=== PATIENT | male | born 1955 | race Caucasian/White ===

== ENCOUNTER 2017-04-20 14:19 | Inpatient (IN) ==
--- NOTE | 2017-04-20 14:36 | Emergency Department Note ---
Disposition Clinical Impression: Elevation of cardiac enzymes Chest pain Qualifiers: Chest pain type: unspecified Qualified Code(s): R07.9 - Chest pain, unspecified Disposition: Admitted As Inpatient Condition: Fair Forms: ED Satisfaction Letter Time of Disposition: 15:30 Chest Pain HPI - General Chief Complaint: ED Chest Pain Stated Complaint: Chest Pain Time Seen by Provider: 04/20/17 14:22 Source: patient, EMS Mode of arrival: EMS Limitations: no limitations Vital Signs Reviewed: Yes Nursing Notes Reviewed: Yes - History of Present Illness HPI Narrative: 61-year-old [place] patient who apparently was admitted to the [place] for the evaluation of chest discomfort. He shouldn't had a repeat troponin which came back at 0.082 (normal less than 0.045) Pt complaint: chest pain Onset (ago): day(s) Duration: intermittent Onset: during rest Pain Location: substernal, left chest Severity: moderate Quality: tightness, aching, heaviness Pain Radiation: none Improves with: nitroglycerin Worsens with: nothing Context: recent illness Associated symptoms: Reports: nausea Treatments prior to arrival chest pain: none All systems ED: reviewed and negative except as stated. Constitutional: Denies: fever, chills, weakness, weight change Eyes: Denies: eye pain, eye discharge, vision change ENT ED: Denies: ear pain, throat pain, dental pain, hearing loss, epistaxis, congestion, dysphagia Cardiovascular: Reports: chest pain. Denies: palpitations, dyspnea on exertion , edema, syncope Respiratory: Denies: cough, dyspnea, wheezes, hemoptysis, stridor Gastrointestinal: Denies: abdominal pain, nausea, vomiting, diarrhea, constipation, hematemesis, melena, hematochezia Genitourinary: Denies: urgency, dysuria, frequency, hematuria Musculoskeletal: Denies: back pain, neck pain, arthralgia, myalgia Integumentary: Denies: rash, abrasion, lesions Neurological: Denies: headache, weakness, numbness, paresthesias, confusion, abnormal gait, vertigo Psychiatric: Denies: anxiety, depression, suicidal thoughts, homicidal thoughts , auditory hallucinations, visual hallucinations Endocrine: Denies: fatigue Hematological/Lymphatic: Denies: easy bleeding, easy bruising Allergic/Immunologic: Denies: facial swelling, urticaria Physical Exam - General Limitations: no limitations General appearance: alert, in no apparent distress - Head Head exam: atraumatic, normocephalic, normal inspection - Eye Eye exam: Present: normal appearance, PERRL, EOMI - ENT ENT exam: normal exam, normal oropharynx, mucous membranes moist - Neck Neck exam: Present: normal inspection, full ROM, trachea midline - Chest Chest inspection: Present: normal inspection, symmetric chest wall rise - Respiratory Respiratory exam: Present: normal lung sounds bilaterally - Cardiovascular Cardiovascular exam: Present: regular rate, normal rhythm, normal heart sounds - Abdominal Exam Abdominal exam: Present: soft, Non-Tender. Absent: tenderness, distention, guarding, rebound, rigidity - Extremities Exam Extremities exam: Present: normal inspection, full ROM. Absent: tenderness, pedal edema - Expanded Lower Extremity Exam Neurovascular/Tendon exam: Absent: motor deficit, sensory deficit, tendon deficit Gait: observed and normal - Back Exam Back exam: Present: normal inspection, full ROM. Absent: tenderness - Neurological Exam Neurological exam: Present: alert, oriented X3 - Psychiatric Psychiatric exam: Present: normal affect, normal mood - Skin Skin exam: Present: warm, dry, intact, normal color Course - Reevaluation(s) Reevaluation #1: 61-year-old [place] patient was admitted to the [place] developed some chest pain and felt his troponin to be slightly elevated. They were concerned about EKG changes I did go through the leave the EKGs from the [place] and I don't see any obvious change. We did obtain an EKG here that showed no acute changes. Initial troponin here was 0.06. Time: 15:27 - Consultations Consultation #1: Discussed with , admit. Time: 15:27 Vital Signs Temperature 98 F 04/20/17 14:29 Pulse Rate 57 04/20/17 14:29 Respiratory Rate 18 04/20/17 14:29 Blood Pressure 115/67 04/20/17 14:29 O2 Sat by Pulse Oximetry 98 04/20/17 14:29 Temperature 98 F 04/20/17 14:39 Pulse Rate 57 04/20/17 14:39 Respiratory Rate 16 04/20/17 14:39 Blood Pressure 116/72 04/20/17 14:39 O2 Sat by Pulse Oximetry 96 04/20/17 14:39 Oxygen Delivery Oxygen Delivery Room Air Chest Pain - Lab Data Result diagrams: 04/20/17 14:42 04/20/17 14:42 Lab Results 04/20/17 04/20/17 04/20/17 Range/Units 14:42 14:42 14:42 WBC 8.8 (4.3-11.1) K/mcL RBC 4.51 (4.19-5.50) M/mcL Hgb 14.0 (12.9-16.9) g/dL Hct 41.3 (37.5-50.1) % MCV 91.6 (83.0-100.0) fL MCH 31.0 (28.0-33.3) pg MCHC 33.9 (31.6-35.5) g/dL RDW 13.2 (11.5-14.5) % Plt Count 177 (140-400) K/mcL MPV 11.3 (9.4-12.4) fL Immature Gran % 0.7 (0-4) % Seg Neutrophils % 52.5 % Lymphocytes % 29.2 % Monocytes % 12.3 % Eosinophils % 4.7 % Basophils % 0.6 % Neutrophils # 4.6 (1.6-8.9) K/mcL Lymphocytes # 2.6 (0.6-4.6) K/mcL Monocytes # 1.1 (0.0-1.3) K/mcL Eosinophils # 0.4 (0.0-0.6) K/mcL Basophils # 0.1 (0.0-0.2) K/mcL PT 11.3 (9.4-12.1) Seconds INR 1.1 APTT 27.2 (26.0-36.0) Seconds Sodium 133 L (136-145) mEq/L Potassium 4.2 (3.5-4.5) mEq/L Chloride 101 (98-109) mEq/L Carbon Dioxide 23 (19-29) mEq/L BUN 21 (8-26) mg/dL Creatinine 0.92 (0.72-1.25) mg/dL Est GFR ( Amer) > 60 (> 60) Est GFR (Non-Af Amer) > 60 (> 60) BUN/Creatinine Ratio 23 (6-26) Glucose 93 (70-99) mg/dL Calculated Osmolality 279 L (280-300) Calcium 8.8 (8.6-10.8) mg/dL Troponin I (0-0.03) ng/mL 11/13/17 Range/Units 14:42 WBC (4.3-11.1) K/mcL RBC (4.19-5.50) M/mcL Hgb (12.9-16.9) g/dL Hct (37.5-50.1) % MCV (83.0-100.0) fL MCH (28.0-33.3) pg MCHC (31.6-35.5) g/dL RDW (11.5-14.5) % Plt Count (140-400) K/mcL MPV (9.4-12.4) fL Immature Gran % (0-4) % Seg Neutrophils % % Lymphocytes % % Monocytes % % Eosinophils % % Basophils % % Neutrophils # (1.6-8.9) K/mcL Lymphocytes # (0.6-4.6) K/mcL Monocytes # (0.0-1.3) K/mcL Eosinophils # (0.0-0.6) K/mcL Basophils # (0.0-0.2) K/mcL PT (9.4-12.1) Seconds INR APTT (26.0-36.0) Seconds Sodium (136-145) mEq/L Potassium (3.5-4.5) mEq/L Chloride (98-109) mEq/L Carbon Dioxide (19-29) mEq/L BUN (8-26) mg/dL Creatinine (0.72-1.25) mg/dL Est GFR ( Amer) (> 60) Est GFR (Non-Af Amer) (> 60) BUN/Creatinine Ratio (6-26) Glucose (70-99) mg/dL Calculated Osmolality (280-300) Calcium (8.6-10.8) mg/dL Troponin I 0.06 H* (0-0.03) ng/mL - EKG Data EKG attestation: Yes I reviewed and interpreted this EKG. EKG shows normal: sinus rhythm Rate: bradycardia Rhythm: NSR Interpretation: nonspecific ST-T wave changes Heart Score - Score History: Moderately Suspicious EKG: Non Specific repolarisation Disturbance Age: 45-65 Risk Factors: Equal/Greater than 3 risk factor or history of atherosclerotic disease Troponin: 1-3x normal limit HEART Score Total: 6
[2017-04-20 14:54] LABS: Basophils # 0.1 K/mcL (0.0-0.2); Basophils % 0.6 %; Eosinophils # 0.4 K/mcL (0.0-0.6); Eosinophils % 4.7 %; Hematocrit 41.3 % (37.5-50.1); Immature Granulocytes % 0.7 % (0-4); Lymphocytes # 2.6 K/mcL (0.6-4.6); Lymphocytes % 29.2 %; Mean Corpuscular HGB Conc 33.9 g/dL (31.6-35.5); Mean Corpuscular Volume 91.6 fL (83.0-100.0); Mean Platelet Volume 11.3 fL (9.4-12.4); Monocytes # 1.1 K/mcL (0.0-1.3); Monocytes % 12.3 %; Neutrophils # 4.6 K/mcL (1.6-8.9); Platelet Count 177 K/mcL (140-400); Red Blood Count 4.51 M/mcL (4.19-5.50); Red Cell Distribution Width 13.2 % (11.5-14.5); Segmented Neutrophils % 52.5 %
[2017-04-20 14:56] LABS: INR 1.1; Prothrombin Time 11.3 Seconds (9.4-12.1)
[2017-04-20 14:59] LABS: Activated Partial Thrombo Time 27.2 Seconds (26.0-36.0)
[2017-04-20 15:02] LABS: Calcium 8.8 mg/dL (8.6-10.8); Carbon Dioxide 23 mEq/L (19-29); Chloride 101 mEq/L (98-109); Glucose 93 mg/dL (70-99); Potassium 4.2 mEq/L (3.5-4.5); Sodium 133 mEq/L (136-145); eGFR For African Americans > 60 (> 60); eGFR For Non-African Americans > 60 (> 60)
[2017-04-20 15:16] LABS: BUN/Creatinine Ratio 23 (6-26); Blood Urea Nitrogen 21 mg/dL (8-26); Osmolality,Calculated 279 (280-300)
[2017-04-20] MEDS ORDERED: Naloxone 0.4 MG/ML INJ IVP PRN (16:24)
--- NOTE | 2017-04-20 16:37 | Internal Med History&Physical ---
Date of Encounter: 04/20/17 Time of Encounter: 16:33 Assessment and Plan (1) Chest pain Current visit: Yes Status: Acute 61/male Patient is hospitalized in the [facility] since December 2016. Since past 2 weeks patient has ongoing chest pain. Since last 48 hours patient chest pain is getting progressively worsen. Noted that the blood test at the [facility] was suggestive of elevated troponin. This was the reason patient was transferred from [facility] to this hospital for further evaluation. Plan: Admit as inpatient: Since this is a patient from the [place] system we will admit as a inpatient. Aspirin/statins/beta erendira. Cycle troponin. Echocardiogram. If the troponins are negative/echocardiogram is normal: Please consider stress test. The troponins have a rising trend: Please call cardiology. I examined this patient in the emergency department. The patient was placed in the emergency department in the room #1. Patient does not have any questions, concerns or recommendations at the time of our conversation. Patient is absolutely chest pain free during the time of conversation. Qualifiers: Chest pain type: unspecified Qualified Code(s): R07.9 - Chest pain, unspecified (2) Elevation of cardiac enzymes Current visit: Yes Status: Acute Elevated troponin: Multi-factorial etiology. Need further workup. Need to cycle troponin. (3) History of psychiatric disorder Current visit: Yes Status: Acute Patient has a extensive history of psychiatric disorder. We need to get more records from the [facility]. I have explained to the emergency department to get all the records from the [facility]. Emergency Department/MedSur floor: Please a health in getting medical records.thanks (4) DVT prophylaxis Current visit: Yes Status: Acute Heparin Medical decision-making this patient has a moderate to severe risk of worsening in spite of being on present medications due to complex comorbid conditions Internal Medicine - H&P: HPI Chief complaint: Chest pain Admitted From: Emergency Dept Plans for Post Hospital Care: Home History of present illness: PCP: RADHA Patel Mr. Yoo is a 61 year old male, who is hospitalized in the [facility] since December 2016 in a psychiatric facility. Patient has ongoing chest pain for last 2 weeks. Patient claims that his chest pain is mainly in the left -sided precordial region which was initially localized, nonradiating, aching in character. For the past 48 hours patient's chest pain is left precordial region , radiating to the left arm, radiating back to the shoulder. The [place] facility was very concerned about this new development and that was the reason that troponins were drawn along with the EKG. Patient's troponins were raised and that was a concern at the [facility] and the transfer this patient to this hospital for further evaluation and management. Patient occasionally complains of shortness of breath. Patient denies abdominal pain, nausea, vomiting, diarrhea and dizziness. Reason for admission: Elevated troponin to rule out acute coronary syndrome. Family history: Noncontributory. Past Med Surg Social Fam HX - Past Medical History Medical history: COPD Psychiatric history: anxiety, bipolar, depression, PTSD, previous psychiatric hospitalization - Social History Smoking Status: Current every day smoker Smokeless Tobacco Status: No Alcohol use: none Drug use: none Internal Medicine - H&P: Meds 3 Allergy/AdvReac Type Severity Reaction Status Date / Time acetaminophen [From Tylenol] Allergy Rash Verified 04/20/17 16:30 albuterol Allergy Rash Verified 04/20/17 16:30 aripiprazole [From Abilify] Allergy Rash Verified 04/20/17 16:30 aspirin [ASA] Allergy Rash Verified 04/20/17 16:30 Buspirone Allergy Rash Verified 04/20/17 16:30 carbamazepine Allergy Rash Verified 04/20/17 16:30 codeine Allergy Rash Verified 04/20/17 16:30 duloxetine Allergy Rash Verified 04/20/17 16:30 flunisolide Allergy Rash Verified 04/20/17 16:30 gabapentin Allergy Rash Verified 04/20/17 16:30 hydroxyzine Allergy Rash Verified 04/20/17 16:30 ketorolac Allergy Rash Verified 04/20/17 16:30 lisinopril Allergy Rash Verified 04/20/17 16:30 Penicillins [PCN] Allergy Hives Verified 04/20/17 16:30 promethazine [From Phenergan] Allergy Rash Verified 04/20/17 16:30 sertraline [From Zoloft] Allergy Rash Verified 04/20/17 16:30 simvastatin Allergy Rash Verified 04/20/17 16:30 Tricyclic Compounds Allergy Rash Verified 04/20/17 16:30 venlafaxine Allergy Rash Verified 04/20/17 16:30 All Systems PM: A 10-system review of systems was performed and is negative for pertinent findings except as documented above in the HPI. - Constitutional Constitutional: no chills, no fever(s), no night sweats - EENT Eyes: no change in vision, no discharge, no pain, no photophobia Ears: no ear discharge, no ear pain, no tinnitus Nose, mouth and throat: no dysphagia, no nasal discharge, no neck pain, no sore throat - Cardiovascular Cardiovascular ROS IM: chest pain, diaphoresis, dyspnea, no lightheadedness, no palpitations, no syncope - Respiratory Respiratory: dyspnea, no cough, no wheezing, no excessive phlegm production - Gastrointestinal Gastrointestinal: no abdominal pain, no diarrhea, no hematemesis, no hematochezia, no melena, no nausea, no vomiting - Musculoskeletal Musculoskeletal ROS IM: no numbness, no tingling - Integumentary Integumentary IM: no rash, no unusual bruising - Neurological Neurological ROS: no confusion, no convulsions, no focal weakness, no numbness, no tingling, no tremor(s) - Hematologic/Lymphatic Hematologic/Lymphatic: no easy bruising - Constitutional Vitals: Temp Pulse Resp BP Pulse Ox 98 F 56 18 124/82 98 04/20/17 14:39 04/20/17 15:42 04/20/17 15:42 04/20/17 15:42 04/20/17 15:42 General appearance: Present: A&O X 3, pleasant, no acute distress, answers questions appropriately - Head Head exam: Present: atraumatic, normocephalic - Eye Eye exam: Present: PERRL, conjuntiva pink, sclera anicteric Pupils: Present: PERRL - Neck Neck exam general surgery: Present: supple, trachea midline. Absent: lymphadenopathy - Respiratory Respiratory exam: Present: CTAB. Absent: accessory muscle use, rales, rhonchi, wheezes - Cardiovascular Cardiovascular exam: Present: RRR, +S1, +S2. Absent: diastolic murmur, gallop, rubs, systolic murmur - GI/Abdominal GI/Abdominal exam: Present: normal bowel sounds, soft, no peritoneal signs. Absent: distended, tenderness - Extremities Exam Extremities exam: Present: warm, radial pulses palpable and symmetrical. Absent : calf tenderness, cyanotic, pedal edema - Neurological Exam Neurological exam: Present: CN II-XII intact, oriented X3, no focal deficits. Absent: pronater drift, facial droop, speech deficit - Skin Skin exam: Present: dry, intact Internal Med - H&P Results - Labs CBC & Chem 7: 04/20/17 14:42 04/20/17 14:42
[2017-04-20] MEDS ORDERED: Nitroglycerin 0.4 MG TAB.SUBL SL PRN (17:50)
[2017-04-20] MEDS ORDERED: *HR* Morphine 2 MG/ML SYRINGE IVP PRN (17:50)
[2017-04-20] MEDS ORDERED: Haloperidol Lactate 5 MG/ML VIAL IVP PRN (17:52)
[2017-04-20] MEDS ORDERED: Nicotine 2 MG GUM BC PRN (18:12)
[2017-04-20] MEDS: Aspirin Enteric Coated 81 MG Tablet PO SCH (18:29)
[2017-04-20] MEDS: *HR* Heparin 5,000 UNIT/ML VIAL SQ SCH (18:29)
[2017-04-20] MEDS: traZODone 50 MG TABLET PO SCH (20:19)
[2017-04-20] MEDS: Divalproex (24 HR) 500 MG TABLET PO SCH ×2 (20:19→20:26)
[2017-04-20] MEDS: Methocarbamol 500 MG TABLET PO PRN (20:19)
[2017-04-20] MEDS: Ibuprofen 800 MG TABLET PO PRN (20:20)
[2017-04-20] MEDS ORDERED: Cortisporin *EAR* SOLN 10 ML BOTTLE LEFT EAR PRN (20:42)
[2017-04-20] MEDS: Ipratropium 1 PUFF INHALER IH SCH (22:14)
[2017-04-21 01:18] LABS: Basophils # 0.1 K/mcL (0.0-0.2); Basophils % 0.9 %; Eosinophils # 0.3 K/mcL (0.0-0.6); Hematocrit 41.1 % (37.5-50.1); Hemoglobin 13.8 g/dL (12.9-16.9); Immature Granulocytes % 0.5 % (0-4); Lymphocytes # 2.3 K/mcL (0.6-4.6); Lymphocytes % 29.2 %; Mean Corpuscular HGB Conc 33.6 g/dL (31.6-35.5); Mean Corpuscular Hemoglobin 30.9 pg (28.0-33.3); Mean Corpuscular Volume 92.2 fL (83.0-100.0); Mean Platelet Volume 11.4 fL (9.4-12.4); Monocytes # 1.2 K/mcL (0.0-1.3); Monocytes % 15.8 %; Neutrophils # 3.9 K/mcL (1.6-8.9); Platelet Count 148 K/mcL (140-400); Red Blood Count 4.46 M/mcL (4.19-5.50); Red Cell Distribution Width 13.2 % (11.5-14.5); Segmented Neutrophils % 49.6 %
[2017-04-21 01:21] LABS: Prothrombin Time 11.1 Seconds (9.4-12.1)
[2017-04-21 01:23] LABS: Activated Partial Thrombo Time 26.4 Seconds (26.0-36.0)
[2017-04-21 01:38] LABS: Alanine Aminotransferase 47 Units/L (0-55); Albumin 2.7 g/dL (3.5-5.0); Albumin/Globulin Ratio 0.7 (1.1-2.2); Alkaline Phosphatase 69 Units/L (38-126); Aspartate Amino Transferase 30 Units/L (5-34); BUN/Creatinine Ratio 22 (6-26); Blood Urea Nitrogen 20 mg/dL (8-26); Calcium 8.7 mg/dL (8.6-10.8); Carbon Dioxide 23 mEq/L (19-29); Chloride 103 mEq/L (98-109); Chol/HDL Ratio 4.3 (0-4.9); Cholesterol 168 mg/dL (< 200); Globulin 3.7 g/dL (2.4-3.5); Glucose 190 mg/dL (70-99); HDL Cholesterol 39 mg/dL (40-59); LDL Cholesterol,Calculated 88 mg/dL (0-99); Magnesium 1.8 mg/dL (1.6-2.6); Osmolality,Calculated 288 (280-300); Phosphorous 3.4 mg/dL (2.3-4.7); Potassium 3.9 mEq/L (3.5-4.5); Sodium 135 mEq/L (136-145); Total Protein 6.4 g/dL (6.0-8.3); Triglycerides 203 mg/dL (< 150); eGFR For African Americans > 60 (> 60); eGFR For Non-African Americans > 60 (> 60)
[2017-04-21 01:45] LABS: Bilirubin,Total < 0.2 mg/dL (0.2-1.2)
[2017-04-21] MEDS ORDERED: *HR* LORazepam 1 MG TABLET PO ONE (03:21)
[2017-04-21] MEDS: Ipratropium 1 PUFF INHALER IH SCH ×4 (04:24→21:11)
[2017-04-21] MEDS: *HR* Heparin 5,000 UNIT/ML VIAL SQ SCH ×2 (06:25→17:50)
[2017-04-21] MEDS: Aspirin Enteric Coated 81 MG Tablet PO SCH (08:36)
[2017-04-21] MEDS: Ibuprofen 800 MG TABLET PO PRN ×3 (08:51→22:30)
[2017-04-21] MEDS: Methocarbamol 500 MG TABLET PO PRN ×3 (08:52→22:30)
[2017-04-21] MEDS ORDERED: Nicotine 14 MG PATCH.TD24 TD SCH (09:00)
--- NOTE | 2017-04-21 10:21 | Internal Med Progress Note ---
<Carson Chin - Last Filed: 04/21/17 10:13> Date of Encounter: 04/21/17 Time of Encounter: 10:00 - Assessment and plan (1) Chest pain Current Visit: Yes Status: Acute Assessment and plan: Patient reports having on and off chest pain for 2 weeks prior to presentation to [facility] Reports recent chest pain starting yesterday that have been worsening He was found to have elevated serum troponin of 0.082 at the [facility] yesterday Reports having resolution of chest pain today, without continuation of any symptoms Echocardiogram results pending Troponins 5 stable, but remains slightly elevated Patient reports resolution of chest pain symptoms, consider cardiac stress test Qualifiers: Chest pain type: unspecified Qualified Code(s): R07.9 - Chest pain, unspecified (2) Elevation of cardiac enzymes Current Visit: Yes Status: Acute Assessment and plan: Patient found to have elevated troponins at the [facility] of 0.082 and was sent to [facility] for further evaluation Repeat troponins at [facility] had been relatively stable at 0.06, 0.05, 0.05, 0.07 CK drawn at the [facility] was 107 No other significant laboratory abnormalities EKGs performed at the [facility] and repeat done at [facility] do not show significant abnormality Patient underwent echocardiogram earlier today, no results yet (3) History of psychiatric disorder Current Visit: Yes Status: Acute Assessment and plan: Patient is resident at the [facility] sense December 2016. Currently under the care of the psychiatrists there and receiving multiple different medications, including: Propanolol, trazodone, Haldol, Depakote Patient reports having some panic attacks at night Stable at this time (4) DVT prophylaxis Current Visit: Yes Status: Acute Assessment and plan: 5000 units heparin SQ BID - Subjective Interval history: Patient reports he is doing well today. Denies having any continued chest pain , arm pain, jaw pain. He denies any shortness of breath or diaphoresis this morning. He denies having numbness or tingling currently. He states he does become slightly short of breath on lying down he also states she is having mild panic attacks last night. - Constitutional Vitals: Temp Pulse Resp BP Pulse Ox 98.8 F 56 15 110/60 94 04/21/17 06:35 04/21/17 06:35 04/21/17 08:39 04/21/17 06:35 04/21/17 08:39 General appearance: Present: A&O X 3, pleasant, no acute distress, answers questions appropriately Exam: General: Cooperative, pleasant, no acute distress, alert and oriented 3, answers questions appropriately HEENT: Normocephalic, atraumatic, neck supple, trachea midline, Conjunctiva pink , sclera anicteric Respiratory: No accessory muscle usage, clear to auscultation bilaterally, no wheezes/rhonchi/rales appreciated Cardiovascular: Regular rate and rhythm, S1 and S2 present, no murmurs/rubs/ gallops/clicks appreciated Extremities: No calf tenderness, noncyanotic, no pedal edema appreciated, warm, lower extremity pulses palpable and symmetrical Neurological: Alert and oriented 3, no facial droop, no focal deficits Internal Medicine: Result - Labs CBC & Chem 7: 04/21/17 00:14 04/21/17 00:14 Labs: Short CBC 04/21/17 Range/Units 00:14 WBC 7.8 (4.3-11.1) K/mcL Hgb 13.8 (12.9-16.9) g/dL Hct 41.1 (37.5-50.1) % Plt Count 148 (140-400) K/mcL Neutrophils # 3.9 (1.6-8.9) K/mcL BMP 04/21/17 00:14 Sodium 135 L Potassium 3.9 Chloride 103 Carbon Dioxide 23 BUN 20 Creatinine 0.93 Glucose 190 H Calcium 8.7 Cardiac Enzymes 04/20/17 04/21/17 04/21/17 Range/Units 17:16 00:14 08:54 Troponin I 0.05 H* 0.05 H* 0.07 H* (0-0.03) ng/mL Liver Function 04/21/17 Range/Units 00:14 Total Bilirubin < 0.2 L (0.2-1.2) mg/dL AST 30 (5-34) Units/L ALT 47 (0-55) Units/L Alkaline Phosphatase 69 (38-126) Units/L Albumin 2.7 L (3.5-5.0) g/dL - ABG Interpretation ABG results: PT/INR, D-dimer PT 11.1 Seconds (9.4-12.1) 04/21/17 00:14 - VTE Documentation of Mechanical Device: Intermittent pneumatic compression device Consult Discharge Plan - Plan [facility]errals: [facility] Care Provider[facility] - 04/29/17 9:45 am <Kurtis Owusu H - Last Filed: 04/21/17 16:14> Date of Encounter: 04/21/17 - Constitutional Vitals: Temp Pulse Resp BP Pulse Ox 98.2 F 60 15 129/78 97 04/21/17 15:53 04/21/17 15:53 04/21/17 15:53 04/21/17 15:53 04/21/17 15:53 Internal Medicine: Result - Labs CBC & Chem 7: 04/21/17 00:14 04/21/17 00:14 Labs: Short CBC 04/21/17 Range/Units 00:14 WBC 7.8 (4.3-11.1) K/mcL Hgb 13.8 (12.9-16.9) g/dL Hct 41.1 (37.5-50.1) % Plt Count 148 (140-400) K/mcL Neutrophils # 3.9 (1.6-8.9) K/mcL BMP 04/21/17 00:14 Sodium 135 L Potassium 3.9 Chloride 103 Carbon Dioxide 23 BUN 20 Creatinine 0.93 Glucose 190 H Calcium 8.7 Cardiac Enzymes 04/20/17 04/21/17 04/21/17 Range/Units 17:16 00:14 08:54 Troponin I 0.05 H* 0.05 H* 0.07 H* (0-0.03) ng/mL Liver Function 04/21/17 Range/Units 00:14 Total Bilirubin < 0.2 L (0.2-1.2) mg/dL AST 30 (5-34) Units/L ALT 47 (0-55) Units/L Alkaline Phosphatase 69 (38-126) Units/L Albumin 2.7 L (3.5-5.0) g/dL - ABG Interpretation ABG results: PT/INR, D-dimer PT 11.1 Seconds (9.4-12.1) 04/21/17 00:14 - Impressions Impressions Echocardiogram 04/21/17 07:00 Impressions: LVEF 60%. Normal LV chamber size and function. Mild concentric left ventricular hypertrophy. Mild left ventricular diastolic dysfunction. Normal right ventricular structure and function. Unable to estimate RVSP due to lack of TR jet. No significant valvular dysfunction. Left Ventricular Wall Motion: Rest Echo Findings All wall segments showed normal motion. Findings: Study Quality * Technically sub-optimal due to body habitus. ECG Findings * Normal sinus rhythm. Left Ventricle * LVEF 60%. * Normal LV chamber size and function. * Mild concentric left ventricular hypertrophy. * Mild left ventricular diastolic dysfunction. Right Ventricle * Normal right ventricular structure and function. Left Atrium * Grossly, mild to moderately dilated right atrium. Right Atrium * Grossly, mildly dilated right atrium. Interatrial Septum * Interatrial septum not well evaluated. Aortic Valve * Trileaflet aortic valve with normal function. * No aortic regurgitation. * No aortic stenosis. Mitral Valve * Normal mitral valve structure and function. * No mitral regurgitation. * No mitral stenosis. Tricuspid Valve * Normal tricuspid valve structure and function. * No tricuspid regurgitation. * Unable to estimate RVSP due to lack of TR jet. Pulmonic Valve * Pulmonic valve not well visualized. Aorta * Normally sized aortic root. Pericardium * The pericardium appears normal. IVC * Normal IVC dimensions and inspiratory collapse. Pulmonary Artery * Normal visualized portions of the main pulmonary artery. - Attending Attestation Stress test in the morning I examined this patient and my medical decision-making was reviewed with the Resident Physician. I agree with the documented findings, disposition and treatment plan as described except to the extent set forth below.
[2017-04-21] MEDS: Divalproex (24 HR) 500 MG TABLET PO SCH ×2 (20:02→22:33)
[2017-04-21] MEDS: traZODone 50 MG TABLET PO SCH (22:24)
[2017-04-22] MEDS: Ipratropium 1 PUFF INHALER IH SCH ×4 (04:30→21:17)
--- NOTE | 2017-04-22 05:36 | Electrocardiograph Report ---
[place] [id number] Test Date: 2017-04-20 Pat Name: Jose Yoo Department: 103 Room: 2NE19 Gender: M Reset Merchandiser: RAMYA : 1955 Requested By: Luigi Hayward Order Number: [id number] Reading MD: Gabe Carr MD Measurements Intervals [place] Rate: 55 P: 29 OR: 148 QRS: 3 QRSD: 83 T: 91 QT: 412 QTc: 402 Interpretive Statements SINUS BRADYCARDIA Electronically Signed On 04-22-2017 5:35:18 EST by Gabe Carr MD
[2017-04-22] MEDS ORDERED: Regadenoson 0.4 MG/5 ML SYRINGE IVP ONE (06:05)
[2017-04-22] MEDS: *HR* Heparin 5,000 UNIT/ML VIAL SQ SCH ×2 (06:34→16:49)
[2017-04-22] MEDS: Aspirin Enteric Coated 81 MG Tablet PO SCH (09:01)
--- NOTE | 2017-04-22 09:16 | Discharge Summary ---
<ElsyCarson - Last Filed: 04/23/17 11:48> Date of Encounter: 04/23/17 Time of Encounter: 06:20 - Discharge Diagnosis (1) Unstable angina Priority: Primary Status: Acute (2) Elevation of cardiac enzymes Priority: Primary Status: Acute (3) History of psychiatric disorder Priority: Primary Status: Acute (4) DVT prophylaxis Priority: Secondary Status: Acute - Discharge Medications Prescriptions: Atorvastatin Calcium [Lipitor] 20 mg PO DAILY #30 tablet Clopidogrel [Plavix] 75 mg PO DAILY #30 tablet Isosorbide MONOnitrate (24 HR) [Imdur] 30 mg PO DAILY #30 tab.er.24h Home Medications: Aspirin 81 mg PO DAILY 04/20/17 [History] Bacitracin OINT [Ak-Tracin] 1 appl TP BID 04/20/17 [History] Betamethasone Dipropionate 1 appl TP BID 04/20/17 [History] Bisacodyl [Woman's Laxative] 5 mg PO BID PRN 04/20/17 [History] Calcipotriene [Dovonex] 1 appl TP BID 04/20/17 [History] Carboxymethylcellulose Sodium [Refresh Tears] 1 drop OP BID 04/20/17 [History] Dextran 70/Hypromellose/Pf [Artificial Tears Drops] 1 each OP Q6H 04/20/17 [ History] Divalproex (24 HR) [Depakote ER (24 HR)] 2,000 mg PO HS 04/20/17 [History] Docusate [Colace] 200 mg PO BID PRN 04/20/17 [History] Haloperidol Lactate [Haldol] 1 mg IM Q6HR PRN 04/20/17 [History] Haloperidol [Haldol] 5 mg PO QID PRN 04/20/17 [History] Ibuprofen [Motrin] 800 mg PO Q8HR PRN 04/20/17 [History] Ipratropium Neb [Atrovent Neb] 0.5 mg IH BID PRN 04/20/17 [History] Ketoconazole Shampoo [Nizoral Shampoo] 1 appl TP SUTUFR 04/20/17 [History] Lidocaine Patch [Lidoderm 5% patch] 1 each TP DAILY 04/20/17 [History] Losartan [Cozaar] 25 mg PO DAILY 04/20/17 [History] Melatonin [Melatin] 12 mg PO HS PRN 04/20/17 [History] Methocarbamol [Robaxin] 1,000 mg PO QID PRN 04/20/17 [History] Mometasone Furoate [Nasonex] 2 spr NS DAILY 04/20/17 [History] Morphine [Morphine Sulfate] 2 mg IV Q2HR PRN 04/20/17 [History] Multivitamin [One Daily Essential] 1 tab PO DAILY 04/20/17 [History] Nicotine Gum [Nicorette gum] 2 mg BC Q2H 04/20/17 [History] Nitroglycerin [Nitrostat] 0.4 mg SL AD PRN 04/20/17 [History] Omeprazole [PriLOSEC] 40 mg PO BID 04/20/17 [History] Propranolol [Inderal] 10 mg PO TID PRN 04/20/17 [History] Tamsulosin [Flomax] 0.4 mg PO QPM 04/20/17 [History] Terbinafine HCl [Terbinafine] 1 appl TP BID 04/20/17 [History] traZODone [TraZODone] 50 mg PO BID PRN 04/20/17 [History] traZODone [TraZODone] 150 mg PO HS PRN 04/20/17 [History] Atorvastatin Calcium [Lipitor] 20 mg PO DAILY #30 tablet 04/23/17 [Rx] Clopidogrel [Plavix] 75 mg PO DAILY #30 tablet 04/23/17 [Rx] Isosorbide MONOnitrate (24 HR) [Imdur] 30 mg PO DAILY #30 tab.er.24h 04/23/17 [ Rx] Fadi/Poly/HC *EAR* SOLN [Cortisporin *EAR* SOLN] 2 drop LEFT EAR QID PRN bottle 04/23/17 [Rx] Allergies/Adverse Reactions: 3 Allergy/AdvReac Type Severity Reaction Status Date / Time acetaminophen [From Tylenol] Allergy Rash Verified 04/20/17 16:30 albuterol Allergy Rash Verified 04/20/17 16:30 aripiprazole [From Abilify] Allergy Rash Verified 04/20/17 16:30 aspirin [ASA] Allergy Rash Verified 04/20/17 16:30 Buspirone Allergy Rash Verified 04/20/17 16:30 carbamazepine Allergy Rash Verified 04/20/17 16:30 codeine Allergy Rash Verified 04/20/17 16:30 duloxetine Allergy Rash Verified 04/20/17 16:30 flunisolide Allergy Rash Verified 04/20/17 16:30 gabapentin Allergy Rash Verified 04/20/17 16:30 hydroxyzine Allergy Rash Verified 04/20/17 16:30 ketorolac Allergy Rash Verified 04/20/17 16:30 lisinopril Allergy Rash Verified 04/20/17 16:30 Penicillins [PCN] Allergy Hives Verified 04/20/17 16:30 promethazine [From Phenergan] Allergy Rash Verified 04/20/17 16:30 sertraline [From Zoloft] Allergy Rash Verified 04/20/17 16:30 simvastatin Allergy Rash Verified 04/20/17 16:30 Tricyclic Compounds Allergy Rash Verified 04/20/17 16:30 venlafaxine Allergy Rash Verified 04/20/17 16:30 Procedures/tests Complete & Pending: Procedures Performed prior 72 hours Category Date Time Status NM bina perf SPECT multi [NM] Routine Exams 04/21/17 14:38 Ordered EV echocardiogram Routine Y 04/21/17 07:00 Completed SP pharm nuclear stress Routine Y 04/22/17 07:00 Ordered Date of admission: 04/20/17 16:05 [facility] Consults: 04/20/17 17:23 Consult to Training Program Manager [CONS] Routine Reason for SW Consult: in patient Discharging clinician: Carson Chin Anticipated date of discharge: 04/23/17 - Patient Status Disposition: Transfer [facility] Condition: Good Functional capacity at discharge: independent ambulation Overall status at discharge: patient is progressing back to baseline - Discharge Instructions Follow Up With: [facility] [Primary Care Provider] - 04/29/17 9:45 am Additional Instructions: Please return to ED or make your provider aware if you have continued chest pain , develop shortness of breath, feel lightheaded, or weak Take all medications as prescribed: Previous home medications Plavix 75 mg daily for 1 year Continue Aspirin 81 mg daily Lipitor 20 mg daily Imdur 30 mg daily Please follow up with your PCP in 1-2 weeks Please follow up with cardiology - Diet and Activity Activity: increase activity as tolerated Diet: low fat, low cholesterol Interval History: Patient reports doing well this morning, with no continued chest pain, shortness of breath, numbness/tingling. He underwent cardiac catheterization last night during which he received 1 drug-eluting stent. Hospital course: "Mr. Yoo is a 61 year old male with medical history of COPD who resides at long-term psychiatric care at the [facility] was transferred to [place] on 04/20/17 after reporting chest pain and having been found to have positive troponins at the [facility]. An additional four troponins were obtained which remained elevated, but were stable. Several EKGs were obtained at the [facility] and then additional EKG obtained [place] this showed mild, nonspecific T-wave changes in an inconsistent manner. It was recommended and was planned that he obtain a cardiac stress test to further evaluate for potential reversible ischemia. The morning that he was scheduled to have his stress test, patient adamantly refused the testing and wants to leave against medical advise. It was highly recommended that he stay for further evaluation and repeated attempts to express the importance that he stay, he decided to stay. Prior to obtaining the stress test, cardiology was consulted to assist in evaluation of his continued troponin elevation without obvious cause. He was taken for a cardiac catheterization the evening of 04/22/17. The results of the catheterization were . Following the patient's catheterization, he was observed overnight for any potential complications. He developed no complications and is safe/stable for return to the [facility]. - Time Spent with Patient Total time spent providing and/or coordinating discharge services: - Constitutional Vitals: Temp Pulse Resp BP Pulse Ox 97.7 F 57 16 131/86 98 04/22/17 07:08 04/22/17 07:08 04/22/17 07:08 04/22/17 07:08 04/22/17 07:08 General appearance: Present: A&O X 3, pleasant, no acute distress, answers questions appropriately Exam: General: Pleasant, cooperative, no acute distress, alert and oriented 3, answers questions appropriately HEENT: Normocephalic, atraumatic, Conjunctiva pink, sclera anicteric Respiratory: No accessory muscle usage, clear to auscultation bilaterally, no wheezes/rhonchi/rales appreciated Cardiovascular: Regular rate and rhythm, S1 and S2 present, no murmurs/rubs/ gallops/clicks appreciated GI/abdominal: Nondistended, nontender, soft, normal bowel sounds, no peritoneal signs Extremities: Mild pedal edema appreciated, warm Neurological: Alert and oriented 3, no facial droop, no focal deficits - VTE Documentation of Mechanical Device: Intermittent pneumatic compression device <Kurtis Owusu - Last Filed: 04/23/17 12:30> Date of Encounter: 04/23/17 Procedures/tests Complete & Pending: Procedures Performed prior 72 hours Category Date Time Status CL Cardiac Catheterization [CL] Routine Beauty Specialist 04/22/17 13:53 Ordered ECG 12 lead ECG [ECG] Routine Y 04/22/17 15:52 Ordered EKG [ECG 12 lead ECG] [ECG] Stat Y 04/23/17 11:19 Ordered EV echocardiogram Routine Y 04/21/17 07:00 Completed SP pharm nuclear stress Routine Y 04/22/17 07:00 Stop Req Date of admission: 04/20/17 16:05 Primary care physician: PCP [facility] Consults: 04/20/17 17:23 Consult to Training Program Manager [CONS] Routine Reason for SW Consult: [facility] patient 04/22/17 09:23 Consult to Cardiology [CONS] Routine Comment: Consulting Provider: Cardiology Francisca Reason for Consult: elevated trops here for stress test from [facility] Call Completed: No 04/22/17 15:56 Consult to Cardiac Rehabilitation-Phase1 [CONS] Routine Comment: Reason for Consult: post op cath Call Completed: Yes Hospital course: Mr. Yoo is a 61 year old male - Time Spent with Patient Total time spent providing and/or coordinating discharge services: - Constitutional Vitals: Temp Pulse Resp BP Pulse Ox 98 F 61 16 129/84 98 04/23/17 10:45 04/23/17 10:45 04/23/17 10:46 04/23/17 10:45 04/23/17 10:46 - Attending Attestation Non-STEMI/CAD status post drug-eluting stent in the first diagonal Continue aspirin, Plavix, propanolol, low dose Lipitor due to prior history of rash with simvastatin Imdur, stable to be discharged to the [facility] and continue his plan of care Time spent on this discharge: 40 minutes I examined this patient and my medical decision-making was reviewed with the Resident Physician. I agree with the documented findings, disposition and treatment plan as described except to the extent set forth below.
--- NOTE | 2017-04-22 09:26 | Internal Med Progress Note ---
<Carson Chin - Last Filed: 04/22/17 09:27> Date of Encounter: 04/22/17 Time of Encounter: 08:30 - Assessment and plan (1) Chest pain Current Visit: Yes Status: Acute Assessment and plan: Patient reports having on and off chest pain for 2 weeks prior to presentation to [facility] Reports recent chest pain starting the day prior to presentation that have been worsening He was found to have elevated serum troponin of 0.082 at the [facility] yesterday Reports having resolution of chest pain today, without continuation of any symptoms Troponins here [facility] 0.07, 0.05, 0.05, and 0.06 Echocardiogram was unremarkable aside from mild concentric left ventricular hypertrophy and mild left ventricular diastolic dysfunction Initial stress test was canceled this morning Patient's chart have been reviewed by cardiology prior to his stress test, they felt that a cardiology consult would be appropriate at this time We will consult cardiology and appreciate recommendations regarding continued elevated troponin without obvious cause Continue nitroglycerin as needed Continue aspirin Qualifiers: Chest pain type: unspecified Qualified Code(s): R07.9 - Chest pain, unspecified (2) Elevation of cardiac enzymes Current Visit: Yes Status: Acute Assessment and plan: Patient found to have elevated troponins at the [facility] of 0.082 and was sent to [facility] for further evaluation Repeat troponins at [place] had been relatively stable at 0.06, 0.05, 0.05, 0.07 CK drawn at the [facility] was 107 No other significant laboratory abnormalities EKGs performed at the [facility] and repeat done at [facility] do not show significant abnormality EKG was unremarkable Plan as above (3) History of psychiatric disorder Current Visit: Yes Status: Acute Assessment and plan: Patient is resident at the [facility] December 2016. Currently under the care of the psychiatrists there and receiving multiple different medications, including: Propanolol, trazodone, Haldol, Depakote Patient reports having some panic attacks at night Stable at this time Continue when necessary propanolol, only stopped if exercise stress test planned (4) DVT prophylaxis Current Visit: Yes Status: Acute Assessment and plan: 5000 units heparin SQ BID - Subjective Interval history: Patient agitated this morning as he has not received his medication for his PTSD. He threatened to leave AMA, you after speaking with his nurse, myself, and my attending. He decided to stay for completion of cardiac workup after stick with the social and political studies professor and determining that he had no good options of the left AMA. He states he is doing well, has no chest pain, and thinks he could run 5 miles without a problem. - Constitutional Vitals: Temp Pulse Resp BP Pulse Ox 97.7 F 57 16 131/86 98 04/22/17 07:08 04/22/17 07:08 04/22/17 07:08 04/22/17 07:08 04/22/17 07:08 General appearance: Present: A&O X 3, pleasant, no acute distress, answers questions appropriately Exam: General: Uncooperative, somewhat angry, no acute distress, alert and oriented 3 , answers questions appropriately HEENT: Normocephalic, atraumatic, Conjunctiva pink, sclera anicteric Respiratory: No accessory muscle usage, clear to auscultation bilaterally, no wheezes/rhonchi/rales appreciated Cardiovascular: Regular rate and rhythm, S1 and S2 present, no murmurs/rubs/ gallops/clicks appreciated GI/abdominal: Nondistended, nontender, soft, normal bowel sounds, no peritoneal signs Extremities: no pedal edema appreciated, warm Neurological: Alert and oriented 3, no facial droop, no focal deficits Internal Medicine: Result - Labs CBC & Chem 7: 04/21/17 00:14 04/21/17 00:14 Labs: Cardiac Enzymes 04/21/17 Range/Units 08:54 Troponin I 0.07 H* (0-0.03) ng/mL - ABG Interpretation ABG results: PT/INR, D-dimer PT 11.1 Seconds (9.4-12.1) 04/21/17 00:14 - Impressions Impressions Echocardiogram 04/21/17 07:00 Impressions: LVEF 60%. Normal LV chamber size and function. Mild concentric left ventricular hypertrophy. Mild left ventricular diastolic dysfunction. Normal right ventricular structure and function. Unable to estimate RVSP due to lack of TR jet. No significant valvular dysfunction. Left Ventricular Wall Motion: Rest Echo Findings All wall segments showed normal motion. Findings: Study Quality * Technically sub-optimal due to body habitus. ECG Findings * Normal sinus rhythm. Left Ventricle * LVEF 60%. * Normal LV chamber size and function. * Mild concentric left ventricular hypertrophy. * Mild left ventricular diastolic dysfunction. Right Ventricle * Normal right ventricular structure and function. Left Atrium * Grossly, mild to moderately dilated right atrium. Right Atrium * Grossly, mildly dilated right atrium. Interatrial Septum * Interatrial septum not well evaluated. Aortic Valve * Trileaflet aortic valve with normal function. * No aortic regurgitation. * No aortic stenosis. Mitral Valve * Normal mitral valve structure and function. * No mitral regurgitation. * No mitral stenosis. Tricuspid Valve * Normal tricuspid valve structure and function. * No tricuspid regurgitation. * Unable to estimate RVSP due to lack of TR jet. Pulmonic Valve * Pulmonic valve not well visualized. Aorta * Normally sized aortic root. Pericardium * The pericardium appears normal. IVC * Normal IVC dimensions and inspiratory collapse. Pulmonary Artery * Normal visualized portions of the main pulmonary artery. - VTE Documentation of Mechanical Device: Intermittent pneumatic compression device Consult Discharge Plan - Plan [facility]errals: [facility]Primary Care Provider] - 04/29/17 9:45 am <Kurtis Owusu H - Last Filed: 04/22/17 15:02> Date of Encounter: 04/22/17 - Constitutional Vitals: Temp Pulse Resp BP Pulse Ox 97.4 F L 51 16 135/92 96 04/22/17 11:12 04/22/17 11:12 04/22/17 11:12 04/22/17 11:12 04/22/17 11:12 Internal Medicine: Result - Labs CBC & Chem 7: 04/21/17 00:14 04/21/17 00:14 - ABG Interpretation ABG results: PT/INR, D-dimer PT 11.1 Seconds (9.4-12.1) 04/21/17 00:14 - Attending Attestation The patient refused to have stress test. Cardiology was consulted. The patient threatened to leave AMA, risk were explained including . Cardiology to decide on further testing. consider possible unstable angina I examined this patient and my medical decision-making was reviewed with the Resident Physician. I agree with the documented findings, disposition and treatment plan as described except to the extent set forth below.
--- NOTE | 2017-04-22 11:47 | Cardiology Consult Note ---
<Tarik Workman - Last Filed: 04/22/17 13:56> Date of Encounter: 04/22/17 Time of Encounter: 11:30 Assessment and Plan (2) Elevation of cardiac enzymes Status: Acute Mild tropnin elevation, 0.06, 0.05, 0.05, 0.07, unclear significance. EKG with no acute changes. TTE shows preserved EF and no significant valvular disease. Typical chest pain symptoms. Symptoms concerning for unstable angina. Cardiac risk factors include HTN, tobacco use, prior heavy ETOH use. [facility] R/B/A discussed. He agrees to proceed. (3) Chest pain Status: Acute Qualifiers: Chest pain type: unspecified Qualified Code(s): R07.9 - Chest pain, unspecified Discussion w patient/family: The assessment and plan as outlined above was discussed with the patient and/or family members who expressed understanding and agreement. All questions were answered. Thank you for involving us in the care of your patient. Please call with any questions. History of Present Illness Consult date: 04/22/17 Requesting physician: Carson Chin Consult reason: Chest pain, elevated troponin Chief complaint: left shoulder pain History of present illness: Mr. Yoo is a 61 year old male with a history of HTN, tobacco abuse, and PTSD who was sent [facility] the [place] with [facility]. He was in [facility] care at the [facility] since December. Over the past two days he c/o left shoulder pain. The pain increased with ambulation and resolves with rest and ibuprofen. He also c/ o increasing SOB with activity over the past month. states that he was lifting weights for a year and noticed he would always have pain in his left shoulder and arm. He denies pain with movement. Cardiology consulted for elevated troponin. He denies previous history of CAD or cardiac work-up. He is currently pain free. Past Med Surg Social Fam HX - Past Medical History Medical history: COPD, hypertension, other Psychiatric history: anxiety, bipolar, depression, PTSD, previous psychiatric hospitalization - Social History Smoking Status: Current every day smoker Packs per day: 1 Smokeless Tobacco Status: No Alcohol use: heavy (Previous heavy use) Drug use: marijuana Medications and Allergies Aspirin 81 mg PO DAILY 04/20/17 [History] Bacitracin OINT [Ak-Tracin] 1 appl TP BID 04/20/17 [History] Betamethasone Dipropionate 1 appl TP BID 04/20/17 [History] Bisacodyl [Woman's Laxative] 5 mg PO BID PRN 04/20/17 [History] Calcipotriene [Dovonex] 1 appl TP BID 04/20/17 [History] Carboxymethylcellulose Sodium [Refresh Tears] 1 drop OP BID 04/20/17 [History] Dextran 70/Hypromellose/Pf [Artificial Tears Drops] 1 each OP Q6H 04/20/17 [ History] Divalproex (24 HR) [Depakote ER (24 HR)] 2,000 mg PO HS 04/20/17 [History] Docusate [Colace] 200 mg PO BID PRN 04/20/17 [History] Haloperidol Lactate [Haldol] 1 mg IM Q6HR PRN 04/20/17 [History] Haloperidol [Haldol] 5 mg PO QID PRN 04/20/17 [History] Ibuprofen [Motrin] 800 mg PO Q8HR PRN 04/20/17 [History] Ipratropium Neb [Atrovent Neb] 0.5 mg IH BID PRN 04/20/17 [History] Ketoconazole Shampoo [Nizoral Shampoo] 1 appl TP SUTUFR 04/20/17 [History] Lidocaine Patch [Lidoderm 5% patch] 1 each TP DAILY 04/20/17 [History] Losartan [Cozaar] 25 mg PO DAILY 04/20/17 [History] Melatonin [Melatin] 12 mg PO HS PRN 04/20/17 [History] Methocarbamol [Robaxin] 1,000 mg PO QID PRN 04/20/17 [History] Mometasone Furoate [Nasonex] 2 spr NS DAILY 04/20/17 [History] Morphine [Morphine Sulfate] 2 mg IV Q2HR PRN 04/20/17 [History] Multivitamin [One Daily Essential] 1 tab PO DAILY 04/20/17 [History] Nicotine Gum [Nicorette gum] 2 mg BC Q2H 04/20/17 [History] Nitroglycerin [Nitrostat] 0.4 mg SL AD PRN 04/20/17 [History] Omeprazole [PriLOSEC] 40 mg PO BID 04/20/17 [History] Propranolol [Inderal] 10 mg PO TID PRN 04/20/17 [History] Tamsulosin [Flomax] 0.4 mg PO QPM 04/20/17 [History] Terbinafine HCl [Terbinafine] 1 appl TP BID 04/20/17 [History] traZODone [TraZODone] 50 mg PO BID PRN 04/20/17 [History] traZODone [TraZODone] 150 mg PO HS PRN 04/20/17 [History] Atorvastatin Calcium [Lipitor] 20 mg PO DAILY #30 tablet 04/23/17 [Rx] Clopidogrel [Plavix] 75 mg PO DAILY #30 tablet 04/23/17 [Rx] Isosorbide MONOnitrate (24 HR) [Imdur] 30 mg PO DAILY #30 tab.er.24h 04/23/17 [ Rx] Fadi/Poly/HC *EAR* SOLN [Cortisporin *EAR* SOLN] 2 drop LEFT EAR QID PRN bottle 04/23/17 [Rx] 3 Allergy/AdvReac Type Severity Reaction Status Date / Time acetaminophen [From Tylenol] Allergy Rash Verified 04/20/17 16:30 albuterol Allergy Rash Verified 04/20/17 16:30 aripiprazole [From Abilify] Allergy Rash Verified 04/20/17 16:30 aspirin [ASA] Allergy Rash Verified 04/20/17 16:30 Buspirone Allergy Rash Verified 04/20/17 16:30 carbamazepine Allergy Rash Verified 04/20/17 16:30 codeine Allergy Rash Verified 04/20/17 16:30 duloxetine Allergy Rash Verified 04/20/17 16:30 flunisolide Allergy Rash Verified 04/20/17 16:30 gabapentin Allergy Rash Verified 04/20/17 16:30 hydroxyzine Allergy Rash Verified 04/20/17 16:30 ketorolac Allergy Rash Verified 04/20/17 16:30 lisinopril Allergy Rash Verified 04/20/17 16:30 Penicillins [PCN] Allergy Hives Verified 04/20/17 16:30 promethazine [From Phenergan] Allergy Rash Verified 04/20/17 16:30 sertraline [From Zoloft] Allergy Rash Verified 04/20/17 16:30 simvastatin Allergy Rash Verified 04/20/17 16:30 Tricyclic Compounds Allergy Rash Verified 04/20/17 16:30 venlafaxine Allergy Rash Verified 04/20/17 16:30 All Systems Review: A 10-system review of systems was performed and is negative for pertinent findings except as documented above in the HPI. Physical Examination Vital Signs, Last 4 Hours Temp Pulse Resp BP Pulse Ox 04/22/17 11:12 97.4 F L 51 16 135/92 96 General: Conversant, No Apparent Distress HEENT: Atraumatic, Normocephaly, Mucus Membranes Moist Neck: No JVD, Normal carotid pulses Cardiac: Reg Rate and Rhythm, Normal S1 and S2, No Murmur Lungs: Normal Breath Sounds, No Wheeze, Rales, Rhonchi Neuro: Alert and responsive, No focal deficits noted Abdomen: Soft, Non-Tender Skin: No rashes noted on visualized skin Musculoskeletal: No Chest Wall Tenderness Extremities: No Clubbing, No Cyanosis, No Edema, Normal Pulses Results 04/21/17 00:14 04/21/17 00:14 - Imaging and Cardiology Echo: report reviewed - EKG Interpretation EKG results cardiology: personally reviewed (SB, HR 55. no acute ST changes) Consult Discharge Plan - Plan Instructions: Chest Pain (DC) Additional Instructions: Please return to ED or make your provider aware if you have continued chest pain , develop shortness of breath, feel lightheaded, or weak Take all medications as prescribed: Previous home medications Plavix 75 mg daily for 1 year Continue Aspirin 81 mg daily Lipitor 20 mg daily Imdur 30 mg daily Please follow up with your PCP in 1-2 weeks Please follow up with cardiology [facility] Provider[facility] - 04/29/17 9:45 am Prescriptions: Atorvastatin Calcium [Lipitor] 20 mg PO DAILY #30 tablet Clopidogrel [Plavix] 75 mg PO DAILY #30 tablet Isosorbide MONOnitrate (24 HR) [Imdur] 30 mg PO DAILY #30 tab.er.24h <Wendy Feng - Last Filed: 04/23/17 15:11> Date of Encounter: 04/23/17 - Attending Attestation I examined this patient and my medical decision-making was reviewed with the [employer] TECHNICIAN. I agree with the documented findings, disposition and treatment plan. Mr. Yoo presented with typical chest pain symptoms and elevated troponins. ECG without acute findings. Patient with cardiac risk factors. We recommend proceeding with [facility] for further evaluation. R/B/A were discussed. Patient expressed understanding and agreement. Assessment and Plan Discussion w patient/family: The assessment and plan as outlined above was discussed with the patient and/or family members who expressed understanding and agreement. All questions were answered. Thank you for involving us in the care of your patient. Please call with any questions. History of Present Illness History of present illness: Mr. Yoo is a 61 year old male All Systems Review: A 10-system review of systems was performed and is negative for pertinent findings except as documented above in the HPI. Results 04/21/17 00:14 04/21/17 00:14
[2017-04-22] MEDS ORDERED: Verapamil 5 MG/2 ML VIAL ONE (14:05)
[2017-04-22] MEDS ORDERED: Heparin 1,000 UNITS/500 mL NS 500 ML ONE (14:05)
[2017-04-22] MEDS ORDERED: *HR* Heparin 10,000 UNIT/10 ML VIAL ONE (14:05)
[2017-04-22] MEDS ORDERED: Nitroglycerin 1,000 MCG/10 ML VIAL IV ONE (14:06)
[2017-04-22] MEDS ORDERED: 0.9 % Sodium Chloride 1,000 ML ONE (14:06)
--- NOTE | 2017-04-22 14:16 | Pre-Sedation Evaluation ---
Pre-sedation evaluation - Pre-sedation checklist Date of procedure: 04/22/17 Procedure: [facility] Recent Vitals: Last Vital Signs Temp 97.4 F L 04/22/17 11:12 Pulse 51 04/22/17 11:12 Resp 16 04/22/17 11:12 BP 135/92 04/22/17 11:12 Pulse Ox 96 04/22/17 11:12 H&P (including ROS) documented in medical record: Yes Dietary Status: NPO after Midnight Airway Assessment: Patient can open mouth completely, TMJ function normal ASA Classification *see protocol: CLASS II-Mild systemic disease Plan of Care: Pt appropriate candidate for procedure/moderate/conscious sedation , Risks/benefits of procedure/sedation discussed w/ patient/family
[2017-04-22] MEDS ORDERED: *HR* Midazolam HCl 2 MG/2 ML VIAL ONE (14:43)
[2017-04-22] MEDS ORDERED: *HR* FentaNYL (PF) 100 MCG/2 ML VIAL ONE (14:44)
[2017-04-22] MEDS ORDERED: Tirofiban 12.5 MG/250ML 12.5 MG/250 ML BAG ONE (15:28)
[2017-04-22] MEDS ORDERED: *HR* HYDROcodone/Acet 5/325 mg TABLET PO PRN (15:52)
[2017-04-22] MEDS ORDERED: Acetaminophen 325 MG TABLET PO PRN (15:52)
[2017-04-22] MEDS ORDERED: Ondansetron 4 MG/2 ML VIAL IVP PRN (15:54)
[2017-04-22] MEDS ORDERED: *HR* Morphine 2 MG/ML SYRINGE IVP PRN (15:54)
[2017-04-22] MEDS ORDERED: *HR* OxyCODONE/APAP 5/325 TABLET PO PRN (15:54)
[2017-04-22] MEDS ORDERED: Tirofiban 12.5 MG/250ML 12.5 MG/250 ML BAG IVC SCH (16:00)
--- NOTE | 2017-04-22 16:04 | Invasive Diagnostic Lab Proc ---
Name: Jose Yoo Date of Study: 04/22/2017 Date: 1955 Ht: 72.0in Medical Record#: [id number] Age: 61 Wt: 268.52lb Gender: Male BSA: 2.41 Order #: [id number] BMI: 36.41 Physicians Procedure Physician: Gabe Carr MD, [facility] Referring MD: Referring MD: Staff Name Position Time In [place] bon[place] RN Monitor 02:40 PM Jose Alberto Alexander RN Drum Maker 02:40 PM Chapis, Aracelis RT (R) Scrub 02:49 PM Indications Indication Non-Stemi Procedures Performed Procedure L HRT ARTERY/VENTRICLE ANGIO PRQ CARD SEAN STENT W/ANGIO 1 VSL Pre-Procedure Checklist Informed consent is complete signed and on chart. H&P is on chart. ID band is on and ID verified with patient. Patient NPO for procedure The procedure was described for the patient and questions were answered. Blood Pressure: 135/92 ECG is on chart. Rhythm: Sinus Bradycardia Plan of Care Patient will tolerate the procedure without complications. Adequate level of comfort will be maintained. Hemodynamics will remain stable Patient will recover from procedure without complications. Respiratory function will be maintained. Cardiac rhythm will remain stable. Patient temperature will be maintained. Patient and/or family have verbalized understanding of the procedure. Patient Education Chief Complaint/Reason for Test: Cardiac Cath Developmental Category: Adult (18-64 years) Developmentally Appropriate for Age: Yes Learning Barriers: None Education Needs: Procedure Education Method: Verbal Information Taught: Cardiac Cath Educational Evaluation: Able to repeat information Intravenous Access Time IV Size Location DC'd Fluid/Drip Rate Units RN 02:16 PM 20g 1 06/11" Patent On Arrival Rt Arm 0.9NaCl 25 ml/hr Jose Alberto Alexander RN Allergies Tricyclic Compounds Penicillins lisinopril hydroxyzine codeine Vital Signs Time BP (mmHg) HR (bpm) O2 Sat. RR (bpm) LOC 02:22 PM 135 / 92 51 96 % 16 5 = Fully awake and oriented or at pre-proc level 02:49 PM / % 5 = Fully awake and oriented or at pre-proc level 02:49 PM / % 4 = Oriented but drowsy 03:04 PM / % 4 = Oriented but drowsy 03:19 PM / % 4 = Oriented but drowsy 02:49 PM 143 / 86 51 98 % 10 02:53 PM 137 / 89 52 98 % 12 02:58 PM 133 / 80 53 97 % 12 03:03 PM 127 / 74 55 99 % 9 03:08 PM 125 / 86 54 98 % 12 03:13 PM 121 / 70 61 96 % 15 03:18 PM 92 / 63 64 96 % 12 03:23 PM 134 / 84 58 96 % 14 03:28 PM 139 / 82 61 96 % 14 03:33 PM 139 / 83 60 98 % 13 03:38 PM 131 / 69 62 96 % 12 03:43 PM 121 / 85 59 98 % Procedural Medications Time Medication Dose Units Method Given By 02:49 PM Oxygen 2 L/min nasal cannula Jose Alberto Alexander RN 02:53 PM Versed 2 mg Intravenous Jose Alberto Alexander RN 02:53 PM Fentanyl 50 mcg Intravenous Jose Alberto Alexander RN 03:09 PM Heparin 4000 units Nitroglycerin 200 mcg Verapamil 2.5 mg Intraarterial aGbe Carr MD, FACC 03:26 PM Heparin 2000 units Intravenous Jose Alberto Alexander RN 03:30 PM Aggrastat Bolus: 62 ml Intravenous Jose Alberto Alexander RN 03:31 PM Aggrastat 12.5mg/250ml 22.5 ml/hr Intravenous Jose Alberto Alexander RN 03:37 PM Nitroglycerin 200 mcg Intracoronary Gabe Carr MD 03:42 PM Plavix 600 mg Orally Jose Alberto Alexander RN ASA Classification: CLASS II- Mild systemic disease (i.e. well-controlled diabetes, hypertension, asthma, cigarette smoking) Tung Score Preprocedure Postprocedure Activity 2- Moves 4 extremities sustained head lift Activity 2- Moves 4 extremities sustained head lift Circulation 2- SBP +/= 20 points of pre-anesthetic level Circulation 2- SBP +/= 20 points of pre-anesthetic level Consciousness 2- Awake and alert oriented x 3 Consciousness 2- Awake and alert oriented x 3 O2 Saturation 2- Able to maintain O2 satruation of 92% on room air O2 Saturation 2- Able to maintain O2 satruation of 92% on room air Respiratory 2- Able to deep breathe and cough well Respiratory 2- Able to deep breathe and cough well Total Score 10 Total Score 10 Contrast Agent: Isovue Diagnostic Contrast: 167 ml Total Contrast: 167 ml Fluoro Dose: 608 mGy Activated Clotting Time Time Seconds to Clot 03:26 PM 213 Procedure Log Time Note Enter By 02:29 PM CathStat 02:40 PM Pt arrived to refuse laborer 2 at 14:40 scoates 02:40 PM Yesica De Anda RN Position: Monitor Time in: 14:40 scoates 02:41 PM Jose Alberto Alexander RN Position: Drum Maker Time in: 14:40 scoates 02:41 PM Physican paged/called 14:41. scoates 02:41 PM Physician arrived 14:41 scoates 02:41 PM Meet and greet completed tsites 02:41 PM Sign in performed according to hospital policy. tsites 02:42 PM Procedure start 14:42 tsites 02:47 PM Vitals capture started with the following parameters, Patient=Adult, Interval=5 min, Initial Mmmynqkz=792 mmHg, Deflation Rate=5 mmHg, Cuff placed on Right Arm 02:49 PM Time: 14:49 Patient comfortable and pain free: Yes tsites 02:49 PM Time: 14:49LOC: 5 = Fully awake and oriented or at pre-proc level tsites 02:49 PM Time: 14:49 Oxygen on at 2 L/min per nasal cannula by Jose Alberto Alexander RN tsites 02:49 PM HR=51 bpm, WIEU=944/86 mmhg, SpO2=98.0 %, Resp=10 B/min 02:50 PM Aracelis Nation RT (R) Position: Scrub Time in: 14:49 tsites 02:50 PM Patient charges- Angio tray pack, Navilyst 3mm J, Pulse Oximetry and ACIST tubing and transducer tsites 02:50 PM Case Delayed No, inpatient tsites 02:50 PM Hair removed from procedure site in holding area using clippers. Right wrist and rt groin prepped with Chloraprep by Jose Alberto Alexander RN, safety strap applied then patient was draped. Skin intact. tsites 02:53 PM Time: 14:53 Versed 2 mg Intravenous Given by Jose Alberto Alexander RN tsites 02:53 PM HR=52 bpm, VVQU=756/89 mmhg, SpO2=98.0 %, Resp=12 B/min, Comment=sb 02:53 PM Time: 14:53 Fentanyl 50 mcg Intravenous Given by Jose Alberto Alexander RN tsites 02:58 PM HR=53 bpm, IWOV=875/80 mmhg, SpO2=97.0 %, Resp=12 B/min 03:03 PM HR=55 bpm, HWTX=135/74 mmhg, SpO2=99.0 %, Resp=9 B/min, Comment=sb 03:04 PM Time: 14:49LOC: 4 = Oriented but drowsy tsites 03:04 PM Time: 14:49 Patient comfortable and pain free: Yes tsites 03:05 PM ASA Class CLASS II- Mild systemic disease (i.e. well-controlled diabetes, hypertension, asthma, cigarette smoking) tsites 03:05 PM Pressure channel 1 zeroed. 03:06 PM Clinical Presentation: Unstable angina tsites 03:07 PM Time out performed according to hospital policy tsites 03:08 PM HR=54 bpm, QLWC=492/86 mmhg, SpO2=98.0 %, Resp=12 B/min, Comment=sb 03:09 PM Access obtained by percutaneous puncture. 6Fr 11cm Terumo [place] sheath placed in right Radial artery. [id number] tsites 03:09 PM Time: 15:09 Patient given 4,000 units Heparin, 200 mcg Nitroglycerin, and 2.5 mg Verapamil Intraarterial by Gabe Carr MD, FAC tsites 03:10 PM 5Fr TIG catheter inserted over the wire [facility] tsites 03:11 PM RCA angiography performed in multiple views. tsites 03:11 PM Recorded Pressure: Ao, HR=65, Condition=Condition 1 (Aorta) Ao 100/73/87 03:11 PM Lesion found in Proximal RCA. Pre Stenosis: 50 Pre KIRTI Flow: tsites 03:11 PM Coronary Dominance: right tsites 03:12 PM Catheter repositioned to the LCA tsites 03:12 PM Catheter removed tsites 03:12 PM 5Fr FL3.5 catheter inserted over the wire [id number] tsites 03:13 PM HR=61 bpm, IAXP=867/70 mmhg, SpO2=96.0 %, Resp=15 B/min, Comment=sb 03:14 PM LCA angiography performed in multiple views. tsites 03:16 PM Lesion found in 1st Diagonal. Pre Stenosis: 80 Pre KIRTI Flow: 3 tsites 03:16 PM Lesion found in 1st Marginal. Pre Stenosis: 40 Pre KIRTI Flow: tsites 03:17 PM Lesion found in Mid LAD. Pre Stenosis: 40 Pre KIRTI Flow: tsites 03:18 PM HR=64 bpm, NIBP=92/63 mmhg, SpO2=96.0 %, Resp=12 B/min, Comment=sb 03:18 PM Pressure channel 1 zero failed. 03:19 PM Pressure channel 1 zeroed. 03:19 PM Recorded Pressure: LV, HR=64, Condition=Condition 1 (Left Ventricle) LV 129/12/18 03:19 PM Time: 15:04 Patient comfortable and pain free: Yes tsites 03:19 PM Time: 15:04LOC: 4 = Oriented but drowsy tsites 03:20 PM Recorded Pressure: LV, Ao, HR=65, Condition=Condition 1 (Left Ventricle) LV 121/31/36, (Aorta) Ao 126/79/101 03:20 PM Catheter removed tsites 03:20 PM 5Fr Pigtail catheter inserted over the wire DNC tsites 03:20 PM Catheter selectively placed in left ventricle tsites 03:20 PM Bolus angiogram of left Ventricle complete: 10 ml/sec for a total of 30 mls tsites 03:22 PM Catheter removed tsites 03:22 PM PCI Status Urgent tsites 03:22 PM PCI Indication: PCI for high risk Non-STEMI or unstable angina tsites 03:23 PM Inflation device was opened. tsites 03:23 PM 6Fr CLS 3.5 Runway guide catheter was used to cannulate the PCI vessel successfully. reused? No tsites 03:23 PM .014 Teresita 190cm guide wire across target lesion- successful. reused? No tsites 03:23 PM HR=58 bpm, CXRM=049/84 mmhg, SpO2=96.0 %, Resp=14 B/min 03:25 PM 2.0 mm x 12 mm Emerge Monorail balloon across target lesion- successful. reused? No tsites 03:26 PM At 15:26 the ACT was 213 seconds. tsites 03:27 PM Time: 15:26 Heparin 2000 units Intravenous Given by Jose Alberto Alexander RN Lama pump tsites 03:28 PM Balloon inflated @ 12 enoc for 15 seconds tsites 03:28 PM HR=61 bpm, IKXE=779/82 mmhg, SpO2=96.0 %, Resp=14 B/min, Comment=sb 03:31 PM Time: 15:30 Aggrastat Bolus: 62 ml Intravenous Given by Jose Alberto Alexander RN Lama pump tsites 03:31 PM Time: 15:31 Aggrastat 12.5mg/250ml 22.5 ml/hr Intravenous Given by Jose Alberto Alexander RN Lama pump tsites 03:32 PM Recorded Pressure: Ao, HR=58, Condition=Condition 1 (Aorta) Ao 127/84/104 03:32 PM Balloon catheter removed intact. tsites 03:32 PM 2.25mm x 16mm Synergy drug-eluting stent across target lesion- successful Lot #[id number] tsites 03:33 PM Recorded Pressure: Ao, HR=60, Condition=Condition 1 (Aorta) Ao 131/88/108 03:33 PM HR=60 bpm, OOAI=960/83 mmhg, SpO2=98.0 %, Resp=13 B/min 03:34 PM Time: 15:19LOC: 4 = Oriented but drowsy tsites 03:34 PM Time: 15:19 Patient comfortable and pain free: Yes tsites 03:34 PM Recorded Pressure: Ao, HR=65, Condition=Condition 1 (Aorta) Ao 130/87/108 03:35 PM Stent deployed @ 16 enoc for 28 seconds tsites 03:36 PM Recorded Pressure: Ao, HR=72, Condition=Condition 1 (Aorta) Ao 135/83/107 03:37 PM Time: 15:37 Nitroglycerin 200 mcg Intracoronary Given by Gabe Carr MD tsites 03:38 PM Stent delivery system removed intact. tsites 03:38 PM HR=62 bpm, WPIP=393/69 mmhg, SpO2=96.0 %, Resp=12 B/min, Comment=sb 03:39 PM Guide wire removed intact. tsites 03:39 PM Guide catheter removed intact. tsites 03:41 PM Procedure completed at 15:41 tsites 03:42 PM Sign out completed: Radiation Dose 608 mGy Fluoro Time: 6.3 Isovue 370 - 200ml contrast 167 ml given by Gabe Carr MD, [facility]. Complications: NoneCardiac Rehab Consult needed: YesConfirmed administered medications: Yes tsites 03:42 PM Time: 15:42 Plavix 600 mg Orally Given by Jose Alberto Alexander RN tsites 03:43 PM Isovue 370 - 200ml,1 Bottle(s) used. tsites 03:43 PM Arterial sheath pulled, Vasc Band closure device used and was Successful S/N. tsites 03:43 PM 11 ml air in Vasc Band. tsites 03:43 PM HR=59 bpm, FIDL=738/85 mmhg, SpO2=98.0 % 03:43 PM Post ECG Sinus Bradycardia tsites 03:43 PM Post Blood Pressure 121/85 tsites 03:44 PM 15:43 Post Pulses Bilateral DP & PT 2+ tsites 03:44 PM Information taught Cardiac Cath, PCI, and Vasc Band tsites 03:44 PM Education needs Procedure, Plan of Care, and Responsibilities of Patient in Care tsites 03:44 PM Learning barriers :None tsites 03:44 PM Education Methods Verbal tsites 03:44 PM Education evaluation Able to repeat information tsites 03:44 PM Site status No bleeding/hematoma - Rt Wrist as reported by Sites, Aracelis RT (R) at 15:44 tsites 03:44 PM Plavix, Effient or Brilinta given Yes tsites 03:44 PM Delay to floor No tsites 03:44 PM Family placed in consult room. tsites 03:44 PM Complications: None tsites 03:49 PM Time: 15:34 Patient comfortable and pain free: Yes tsites 03:50 PM Report given to Michelle JOE Pt taken to 2NE Room #19. 15:49 tsites 03:50 PM Delay to floor No tsites 03:50 PM Patient out of room: 15:50 tsites 03:50 PM no family present tsites 03:55 PM Mid/Distal Left Anterior Descending Coronary Artery and diagonal branches with 80% stenosis. If graft is supplying this area, 0 % stenosis tsites 03:55 PM Circumflex, Obtuse Marginal, Left Posterior Descending, and Left Posterolateral Coronary Arteries with 40 % stenosis. If graft is supplying this area, 0 % stenosis tsites 03:55 PM Right Coronary, Right Posterior Descending Arteries with Right Posterolateral and Acute Marginal branches with 50 % stenosis. If graft is supplying this area, 0 % stenosis tsites Complications Complication None None Hemodynamics Pressures Site Systolic/A Wave Diastolic/V Wave Mean AO 100 73 87 LV 129 12 18 LV 121 31 36 AO 126 79 101 AO 127 84 104 AO 131 88 108 AO 130 87 108 AO 135 83 107 Post Procedure Information Blood Pressure: 121/85 mmHg Rhythm: Sinus Bradycardia Post procedural instructions were given Closure Device Time Device Success/Fail 04/22/2017 3:46:00 PM Mechanical Compression Successful Site Checks Time Location Status Staff Sheath In? Note 03:44 PM Rt Wrist No bleeding/hematoma Sites, Aracelis RT (R) Pulses Time Site Pre-Procedure Post-Procedure Note 04/22/2017 2:22:00 PM Bilateral DP & PT 2+ 04/22/2017 2:22:00 PM Bilateral radial 2+ 3:43:00 PM Bilateral DP & PT 2+ Updated by [facility], RT (R) on 04/22/2017 3:57:41 PM [facility], RT electronically signed on 04/22/2017 3:58:13 PM with status of Final
[2017-04-22] MEDS: Ibuprofen 800 MG TABLET PO PRN (16:51)
[2017-04-22] MEDS: Methocarbamol 500 MG TABLET PO PRN ×2 (16:52→23:04)
[2017-04-22] MEDS: Divalproex (24 HR) 500 MG TABLET PO SCH ×2 (23:00→23:04)
[2017-04-22] MEDS: traZODone 50 MG TABLET PO SCH (23:04)
[2017-04-23] MEDS: Ipratropium 1 PUFF INHALER IH SCH ×2 (04:14→10:46)
[2017-04-23] MEDS ORDERED: Regadenoson 0.4 MG/5 ML SYRINGE IVP ONE (06:19)
[2017-04-23] MEDS: *HR* Heparin 5,000 UNIT/ML VIAL SQ SCH (06:28)
--- NOTE | 2017-04-23 06:32 | Internal Med Progress Note ---
<Carson Chin - Last Filed: 04/23/17 08:04> Date of Encounter: 04/23/17 Time of Encounter: 06:20 - Assessment and plan (1) Unstable angina Current Visit: Yes Status: Acute Assessment and plan: Patient reports having on and off chest pain for 2 weeks prior to presentation to [facility] Reports recent chest pain starting the day prior to presentation that have been worsening He was found to have elevated serum troponin of 0.082 at the [facility] yesterday Reports having resolution of chest pain today, without continuation of any symptoms Troponins here at [facility] 0.07, 0.05, 0.05, and 0.06 Echocardiogram was unremarkable aside from mild concentric left ventricular hypertrophy and mild left ventricular diastolic dysfunction Patient underwent cardiac catheterization yesterday with placement of one drug- eluting stent Cardiology is following Patient underwent cardiac catheterization last time with placement of one drug-eluting stent Continue nitroglycerin as needed Continue aspirin Start Plavix (2) Elevation of cardiac enzymes Current Visit: Yes Status: Acute Assessment and plan: Patient found to have elevated troponins at the [facility] of 0.082 and was sent to [facility] for further evaluation Repeat troponins at [facility] had been relatively stable at 0.06, 0.05, 0.05, 0.07 CK drawn at the [facility] was 107 No other significant laboratory abnormalities EKGs performed at the [facility] and repeat done at [facility] do not show significant abnormality EKG was unremarkable Plan as above (3) History of psychiatric disorder Current Visit: Yes Status: Acute Assessment and plan: Patient is resident at the [facility] December 2016. Currently under the care of the psychiatrists there and receiving multiple different medications, including: Propanolol, trazodone, Haldol, Depakote Patient reports having some panic attacks at night Stable at this time Continue when necessary propanolol, only stopped if exercise stress test planned (4) DVT prophylaxis Current Visit: Yes Status: Acute Assessment and plan: 5000 units heparin SQ BID - Subjective Interval history: Patient reports doing well this morning, with no continued chest pain, shortness of breath, numbness/tingling. He underwent cardiac catheterization last night during which he received 1 drug-eluting stent. - Constitutional Vitals: Temp Pulse Resp BP Pulse Ox 98.6 F 65 19 124/85 98 04/22/17 23:30 04/23/17 04:05 04/23/17 04:05 04/23/17 04:05 04/23/17 04:05 General appearance: Present: A&O X 3, pleasant, no acute distress, answers questions appropriately Exam: General: Pleasant, cooperative, no acute distress, alert and oriented 3, answers questions appropriately HEENT: Normocephalic, atraumatic, Conjunctiva pink, sclera anicteric Respiratory: No accessory muscle usage, clear to auscultation bilaterally, no wheezes/rhonchi/rales appreciated Cardiovascular: Regular rate and rhythm, S1 and S2 present, no murmurs/rubs/ gallops/clicks appreciated GI/abdominal: Nondistended, nontender, soft, normal bowel sounds, no peritoneal signs Extremities: Mild pedal edema appreciated, warm Neurological: Alert and oriented 3, no facial droop, no focal deficits Internal Medicine: Result - Labs CBC & Chem 7: 04/21/17 00:14 04/21/17 00:14 - ABG Interpretation ABG results: PT/INR, D-dimer PT 11.1 Seconds (9.4-12.1) 04/21/17 00:14 - VTE Documentation of Mechanical Device: Intermittent pneumatic compression device Consult Discharge Plan - Plan Additional Instructions: Please return to ED or make your provider aware if you have continued chest pain , develop shortness of breath, feel lightheaded, or weak Take all medications as prescribed: Previous home medications Plavix 75 mg daily for 1 year Continue Aspirin 81 mg daily Lipitor 20 mg daily Imdur 30 mg daily Please follow up with your PCP in 1-2 weeks Please follow up with cardiology [facility]errals: [facility] Provider[facility] - 04/29/17 9:45 am Prescriptions: Atorvastatin Calcium [Lipitor] 20 mg PO DAILY #30 tablet Clopidogrel [Plavix] 75 mg PO DAILY #30 tablet Isosorbide MONOnitrate (24 HR) [Imdur] 30 mg PO DAILY #30 tab.er.24h <Kurtis Owusu H - Last Filed: 04/23/17 12:36> Date of Encounter: 04/23/17 - Constitutional Vitals: Temp Pulse Resp BP Pulse Ox 98 F 61 16 129/84 98 04/23/17 10:45 04/23/17 10:45 04/23/17 10:46 04/23/17 10:45 04/23/17 10:46 Internal Medicine: Result - Labs CBC & Chem 7: 04/21/17 00:14 04/21/17 00:14 - ABG Interpretation ABG results: PT/INR, D-dimer PT 11.1 Seconds (9.4-12.1) 04/21/17 00:14 - Attending Attestation Non-STEMI Stable [facility] I examined this patient and my medical decision-making was reviewed with the Resident Physician. I agree with the documented findings, disposition and treatment plan as described except to the extent set forth below.
--- NOTE | 2017-04-23 08:03 | Physician Discharge Referral ---
<Carson Chin - Last Filed: 04/23/17 11:53> [facility] Referral Info Transfer To: [facility] Provider in Charge after Transfer: PCP Institutional Level of Care: Intermediate - Diagnosis (1) Unstable angina Priority: Primary Status: Acute (2) Elevation of cardiac enzymes Priority: Primary Status: Acute (3) History of psychiatric disorder Priority: Primary Status: Acute (4) DVT prophylaxis Priority: Secondary Status: Acute - Transfer Medications Prescriptions: Atorvastatin Calcium [Lipitor] 20 mg PO DAILY #30 tablet Clopidogrel [Plavix] 75 mg PO DAILY #30 tablet Isosorbide MONOnitrate (24 HR) [Imdur] 30 mg PO DAILY #30 tab.er.24h Home Medications: Aspirin 81 mg PO DAILY 04/20/17 [History] Bacitracin OINT [Ak-Tracin] 1 appl TP BID 04/20/17 [History] Betamethasone Dipropionate 1 appl TP BID 04/20/17 [History] Bisacodyl [Woman's Laxative] 5 mg PO BID PRN 04/20/17 [History] Calcipotriene [Dovonex] 1 appl TP BID 04/20/17 [History] Carboxymethylcellulose Sodium [Refresh Tears] 1 drop OP BID 04/20/17 [History] Dextran 70/Hypromellose/Pf [Artificial Tears Drops] 1 each OP Q6H 04/20/17 [ History] Divalproex (24 HR) [Depakote ER (24 HR)] 2,000 mg PO HS 04/20/17 [History] Docusate [Colace] 200 mg PO BID PRN 04/20/17 [History] Haloperidol Lactate [Haldol] 1 mg IM Q6HR PRN 04/20/17 [History] Haloperidol [Haldol] 5 mg PO QID PRN 04/20/17 [History] Ibuprofen [Motrin] 800 mg PO Q8HR PRN 04/20/17 [History] Ipratropium Neb [Atrovent Neb] 0.5 mg IH BID PRN 04/20/17 [History] Ketoconazole Shampoo [Nizoral Shampoo] 1 appl TP SUTUFR 04/20/17 [History] Lidocaine Patch [Lidoderm 5% patch] 1 each TP DAILY 04/20/17 [History] Losartan [Cozaar] 25 mg PO DAILY 04/20/17 [History] Melatonin [Melatin] 12 mg PO HS PRN 04/20/17 [History] Methocarbamol [Robaxin] 1,000 mg PO QID PRN 04/20/17 [History] Mometasone Furoate [Nasonex] 2 spr NS DAILY 04/20/17 [History] Morphine [Morphine Sulfate] 2 mg IV Q2HR PRN 04/20/17 [History] Multivitamin [One Daily Essential] 1 tab PO DAILY 04/20/17 [History] Nicotine Gum [Nicorette gum] 2 mg BC Q2H 04/20/17 [History] Nitroglycerin [Nitrostat] 0.4 mg SL AD PRN 04/20/17 [History] Omeprazole [PriLOSEC] 40 mg PO BID 04/20/17 [History] Propranolol [Inderal] 10 mg PO TID PRN 04/20/17 [History] Tamsulosin [Flomax] 0.4 mg PO QPM 04/20/17 [History] Terbinafine HCl [Terbinafine] 1 appl TP BID 04/20/17 [History] traZODone [TraZODone] 50 mg PO BID PRN 04/20/17 [History] traZODone [TraZODone] 150 mg PO HS PRN 04/20/17 [History] Atorvastatin Calcium [Lipitor] 20 mg PO DAILY #30 tablet 04/23/17 [Rx] Clopidogrel [Plavix] 75 mg PO DAILY #30 tablet 04/23/17 [Rx] Isosorbide MONOnitrate (24 HR) [Imdur] 30 mg PO DAILY #30 tab.er.24h 04/23/17 [ Rx] Fadi/Poly/HC *EAR* SOLN [Cortisporin *EAR* SOLN] 2 drop LEFT EAR QID PRN bottle 04/23/17 [Rx] Allergies/Adverse Reactions: 3 Allergy/AdvReac Type Severity Reaction Status Date / Time acetaminophen [From Tylenol] Allergy Rash Verified 04/20/17 16:30 albuterol Allergy Rash Verified 04/20/17 16:30 aripiprazole [From Abilify] Allergy Rash Verified 04/20/17 16:30 aspirin [ASA] Allergy Rash Verified 04/20/17 16:30 Buspirone Allergy Rash Verified 04/20/17 16:30 carbamazepine Allergy Rash Verified 04/20/17 16:30 codeine Allergy Rash Verified 04/20/17 16:30 duloxetine Allergy Rash Verified 04/20/17 16:30 flunisolide Allergy Rash Verified 04/20/17 16:30 gabapentin Allergy Rash Verified 04/20/17 16:30 hydroxyzine Allergy Rash Verified 04/20/17 16:30 ketorolac Allergy Rash Verified 04/20/17 16:30 lisinopril Allergy Rash Verified 04/20/17 16:30 Penicillins [PCN] Allergy Hives Verified 04/20/17 16:30 promethazine [From Phenergan] Allergy Rash Verified 04/20/17 16:30 sertraline [From Zoloft] Allergy Rash Verified 04/20/17 16:30 simvastatin Allergy Rash Verified 04/20/17 16:30 Tricyclic Compounds Allergy Rash Verified 04/20/17 16:30 venlafaxine Allergy Rash Verified 04/20/17 16:30 - Respiratory Orders Smoking Cessation: Smoking cessation has been advised. For more information, call the [employer] Quit Line at 0-516-ZBZV-NOW. - Mobility Orders Ambulate - Rehabiliation Orders Rehab Potential: Good - Diet Orders Cardiac CERTIFICATION: I certify that the transfer of the above named patient to an Extended Care Facility is necessary for the continuing treatment of the diagnosis listed. The above information is true and accurate reflection of patient's current condition. Confidential - Redisclosure prohibited without a patient's written consent. <Kurtis Owusu H - Last Filed: 04/23/17 12:31> - Respiratory Orders Smoking Cessation: Smoking cessation has been advised. For more information, call the [employer] Line at 3-995-FJRN-NOW. CERTIFICATION: I certify that the transfer of the above named patient to an Extended Care Facility is necessary for the continuing treatment of the diagnosis listed. The above information is true and accurate reflection of patient's current condition. Confidential - Redisclosure prohibited without a patient's written consent. Non-STEMI, stable to be discharged
[2017-04-23] MEDS ORDERED: Aspirin 81 MG TAB.CHEW PO SCH (09:00)
[2017-04-23] MEDS: Methocarbamol 500 MG TABLET PO PRN (09:49)
[2017-04-23] MEDS: Ibuprofen 800 MG TABLET PO PRN (09:49)
--- NOTE | 2017-04-23 10:04 | Cardiology Progress Note ---
Date of Encounter: 04/23/17 Time of Encounter: 10:03 Assessment and Plan (1) NSTEMI (non-ST elevated myocardial infarction) Current Visit: Yes Status: Acute Mild tropnin elevation, 0.06, 0.05, 0.05, 0.07. EKG with no acute changes. TTE shows preserved EF and no significant valvular disease. Typical chest pain symptoms. S/p [facility] with PCI to his 1st diagonal artery. Moderate non obstructive disease otherwise. There was no complication from his procedure. Importance of DAPT with asa and plavix uninterrupted for minimum of one year reviewed with patient and he voiced understanding. Continue bb. Patient previously had rash with simvistatin therapy per hospital record. Patient does not remember this or remember having severe reaction. He is willing to start low dose atorvastatin and see how he does. Start imdur for moderate CAD. Patient had mild chest pain after his procedure. There was no complication with his right groin access site. Activity restrictions reviewed as stated above. Phase one cardiac rehab ordered. Check post procedure labs: CBC and BMP. Check EKG. In no significant change he can be discharged back to the [facility] from cardiology standpoint. Out-pt f/u will be coordinated by [facility]. Discussion w patient/family: The assessment and plan as outlined above was discussed with the patient and/or family members who expressed understanding and agreement. All questions were answered. Thank you for involving us in the care of your patient. Please call with any questions. Subjective Principal diagnosis: CAD, Unstable angina Interval history: S/p PCI 04/22/17. No events overnight. C/o burning in left chest this morning but now pain free. Objective Vital Signs, Last 4 Hours Temp Pulse Resp BP Pulse Ox 04/23/17 07:00 97.8 F 56 15 127/80 97 General: Conversant, No Apparent Distress HEENT: Atraumatic, Normocephaly, Mucus Membranes Moist Neck: No JVD, Normal carotid pulses Cardiac: Reg Rate and Rhythm, Normal S1 and S2, No Murmur Lungs: Normal Breath Sounds, No Wheeze, Rales, Rhonchi Neuro: Alert and responsive, No focal deficits noted Abdomen: Soft, Non-Tender Skin: No rashes noted on visualized skin Musculoskeletal: No Chest Wall Tenderness Extremities: No Clubbing, No Cyanosis, No Edema, Normal Pulses, Other (Right radial access site without redness or swelling.) Results 04/21/17 00:14 04/21/17 00:14 - Imaging and Cardiology Echo: report reviewed Cardiac cath: report reviewed - EKG Interpretation EKG results cardiology: personally reviewed - VTE Documentation of Mechanical Device: Intermittent pneumatic compression device Consult Discharge Plan - Plan Additional Instructions: Please return to ED or make your provider aware if you have continued chest pain , develop shortness of breath, feel lightheaded, or weak Take all medications as prescribed: Previous home medications Plavix 75 mg daily for 1 year Continue Aspirin 81 mg daily Please follow up with your PCP in 1-2 weeks Please follow up with cardiology Referrals: [facility],PCP [Primary Care Provider] - 04/29/17 9:45 am Prescriptions: Clopidogrel [Plavix] 75 mg PO DAILY #30 tablet
[2017-04-23 10:46] VITALS: BP 129/84
[2017-04-23] MEDS ORDERED: Isosorbide MONOnitrate (24 HR) 30 MG TAB.ER.24H PO SCH (11:15)
--- NOTE | 2017-04-24 17:50 | Electrocardiograph Report ---
[address] [place], [place] [address] Test Date: 2017-04-23 Pat Name: Jose Yoo Department: 111 Room: 2NE19 Gender: M [employer] Member: ZAKIYA : 1955 Requested By: Tarik Workman Order Number: [id number] Reading MD: Gabe Carr MD Measurements Intervals [place] Rate: 57 P: 32 NC: 146 QRS: 10 QRSD: 81 T: 62 QT: 379 QTc: 373 Interpretive Statements SINUS BRADYCARDIA Electronically Signed On 04-24-2017 17:48:20 EST by Gabe Carr MD
== END 2017-04-23 13:45 | DRG 247 ==
LOC: EMEROO 14:19 → SUATTDRO 16:05 → 2NENU 16:05
PROVIDERS: ADMIT Internal Medicine; ATTEND Internal Medicine